=== PATIENT | male | born 1955 | race Caucasian/White ===

== ENCOUNTER 2018-06-18 11:19 | Emergency (ER) | payer OTHER ==
[2018-06-18 11:32] VITALS: TEMP 97.2
--- NOTE | 2018-06-18 11:58 | RAD ---
EXAM DESCRIPTION: Chest,1 View CLINICAL HISTORY: palpitations COMPARISON: None FINDINGS: Cardiac silhouette is within normal limits. Patient is status post median sternotomy and CABG. EKG leads project over the chest. There is no focal parenchymal or pleural disease. There is no acute osseous process visualized. IMPRESSION: No evidence of acute cardiopulmonary disease. Electronically signed by: Moshe Strong MD 06/18/2018 11:[address] [facility]
[2018-06-18] MEDS ORDERED: POTASSIUM CHLORIDE ELIXIR 20 MEQ/15 ML UD PO ONE (12:13)
[2018-06-18] MEDS ORDERED: SODIUM CHLORIDE 0.9% 1000ML 1,000 ML IVS ONE (12:14)
--- NOTE | 2018-06-18 13:41 | ED.PDOC ---
History of Present Illness - General Chief Complaint: Chest Pain/LA Time Seen by Provider: 06/18/18 11:21 Source: patient Exam Limitations: no limitations - History of Present Illness Initial Comments: the patient's 63-year-old male presented to the emergency room secondary to a feeling of palpitations starting this morning when he was trying to get up to get around. He had recently changed psychiatric medications. No new blood pressure medication changes. No syncope or near-syncope. No chest pain. No real shortness of breath. Just a feeling of palpitations. No history of any arrhythmia.t is worse with activity. Timing/Duration: unsure Severity: mild Improving Factors: nothing Worsening Factors: nothing Associated Symptoms: diaphoresis Allergies/Adverse Reactions: Allergies NO KNOWN ALLERGY Allergy (Verified 06/18/18 11:32) Home Medications: Ambulatory Orders Amlodipine Besylate 10 mg PO DAILY 06/18/18 Calcium Polycarbophil 1,250 mg PO DAILY 06/18/18 Duloxetine HCl 60 mg PO DAILY 06/18/18 Hydrochlorothiazide 12.5 mg PO DAILY 06/18/18 Indomethacin 25 mg PO TID PRN 06/18/18 Lisinopril 20 mg PO DAILY 06/18/18 Naproxen [Naprosyn] 500 mg PO BID PRN 06/18/18 Omeprazole 20 mg PO DAILY 06/18/18 Oxybutynin Chloride [Ditropan] 5 mg PO DAILY 06/18/18 Rosuvastatin Calcium 40 mg PO 20 06/18/18 Terazosin HCl 5 mg PO BEDTIME 06/18/18 Review of Systems - Review of Systems Constitutional: States: no symptoms reported EENTM: States: no symptoms reported Respiratory: States: no symptoms reported Cardiology: States: palpitations Gastrointestinal/Abdominal: States: no symptoms reported Genitourinary: States: no symptoms reported Musculoskeletal: States: no symptoms reported Skin: States: no symptoms reported Neurological: States: no symptoms reported Endocrine: States: no symptoms reported All other Systems: No Change from Baseline Past Medical History (General) - Patient Medical History Hx Seizures: No Hx Stroke: No Hx Dementia: No Hx Asthma: No Hx of COPD: No Hx Cardiac Disorders: Yes Hx Congestive Heart Failure: No Hx Pacemaker: No Hx Hypertension: Yes Hx Thyroid Disease: No Hx Diabetes: No Hx Gastroesophageal Reflux: No Hx Renal Disease: No Hx Cancer: No Hx of HIV: No Hx Hepatitis C: No Hx MRSA: No - Vaccination History Hx Tetanus, Diphtheria Vaccination: No Hx Influenza Vaccination: No Hx Pneumococcal Vaccination: No Immunizations Up to Date: No - Social History Hx Tobacco Use: No Hx Chewing Tobacco Use: No Hx Alcohol Use: No Hx Substance Use: No Hx Substance Use Treatment: No Hx Depression: No Feels Threatened In Home Enviroment: No Feels Threatened In a Relationship: No Hx Physical Abuse: No Hx Emotional Abuse: No Hx Suspected Abuse: No - Activities of Daily Living Hospice Agency (if applicable):: None - Female History Patient is a Female of Child Bearing Age (10 -59 yrs old): No Patient : No Family Medical History - Family History Father Hx Family Diabetes: Yes Physical Exam - Physical Exam General Appearance: Alert, Comfortable, No apparent distress Eye Exam: bilateral normal Ears, Nose, Throat: hearing grossly normal, normal ENT inspection Neck: full range of motion, supple Respiratory: lungs clear, normal breath sounds, no respiratory distress, no accessory muscle use Cardiovascular/Chest: normal peripheral pulses, regular rate, rhythm, no edema Peripheral Pulses: radial,right: 2+, radial,left: 2+ Gastrointestinal/Abdominal: non tender, soft - morbidly obese Rectal Exam: deferred Back Exam: no CVA tenderness, no vertebral tenderness Extremity: non-tender, normal inspection, no pedal edema, normal capillary refill 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, no motor/sensory deficits, alert, normal mood/affect, oriented x 3 Skin Exam: normal color Comments: Vital Signs - 24 hr 06/18/18 06/18/18 06/18/18 11:19 12:15 13:15 Temperature 97.2 F L Pulse Rate [ 100 H 79 77 left hand] Respiratory 18 20 Rate Blood Pressure 161/72 121/60 127/62 [Left Arm] O2 Sat by Pulse 96 94 L Oximetry 06/18/18 06/18/18 13:16 13:17 Temperature Pulse Rate [ 86 91 H left hand] Respiratory Rate Blood Pressure 122/63 87/56 [Left Arm] O2 Sat by Pulse Oximetry Progress - Progress Progress: 06/18/18 13:40 the patient 63-year-old male that is feeling some palpitations most likely due to dehydration and significant orthostasis. Systolic blood pressures dropped from approximately the 130s down to the 80s with standing. He does have some significant dehydration contributing to this. I'm going to recommend that he discontinue the hydrochlorothiazide for now and follow up with his primary care doctor. Additionally he does have some hypokalemia. This may also improve with discontinuation of the hydrochlorothiazide. He needs to have this rechecked in 1-2 weeks. He was given supplemental potassium dose today. He did receive a liter of IV fluids here for the dehydration as well. He should ambulate carefully to prevent any falls from the orthostasis. He was monitored on telemetry monitoring here for several hours without any significant arrhythmia. Follow-up with primary care doctor. ER warnings were given. - Results/Orders Results/Orders: chest x-ray shows no acute process. EKG shows normal sinus rhythm at 97 bpm. Normal axis. Normal QT interval. Normal R-wave progression. Mild left atrial dilation. Nonspecific T-wave changes. No previous to compare to. Laboratory Tests 06/18/18 06/18/18 11:51 11:51 WBC 6.0 RBC 4.53 L Hgb 14.4 Hct 41.6 L MCV 92.0 MCH 31.7 H MCHC 34.6 RDW 13.6 Plt Count 126 L MPV 7.8 Absolute Neuts (auto) 4.30 Absolute Lymphs (auto) 0.80 L Absolute Monos (auto) 0.40 Absolute Eos (auto) 0.50 H Absolute Basos (auto) 0.00 Neutrophils % 71.5 Lymphocytes % 14.2 L Monocytes % 6.1 Eosinophils % 8.0 H Basophils % 0.2 Sodium 137 Potassium 3.1 L Chloride 102 Carbon Dioxide 25 Anion Gap 13.1 BUN 29 H Creatinine 1.27 BUN/Creatinine Ratio 22.8 H Random Glucose 132 H Serum Osmolality 281.5 Calcium 9.0 Magnesium 1.8 Total Bilirubin 0.9 AST 18 ALT 15 Alkaline Phosphatase 49 Creatine Kinase 88 CK-MB (CK-2) 2.0 CK-MB (CK-2) % Not Reportable Troponin I < 0.02 B-Natriuretic Peptide 12.2 Serum Total Protein 6.9 Albumin 4.2 Globulin 2.7 Albumin/Globulin Ratio 1.6 - EKG/XRAY/CT CT Ordered: No CT Interpretation Call Back: No Departure - Departure Clinical Impression: Orthostatic hypotension, Palpitations Disposition: Discharge to Home or Self Care Condition: Fair Departure Forms: ED Discharge - Pt. Copy, Patient Portal Self Enrollment Instructions: Orthostatic Hypotension (DC) Diet: regular diet Activity: increase activity as tolerated Home Medications: Ambulatory Orders Amlodipine Besylate 10 mg PO DAILY 06/18/18 Calcium Polycarbophil 1,250 mg PO DAILY 06/18/18 Duloxetine HCl 60 mg PO DAILY 06/18/18 Hydrochlorothiazide 12.5 mg PO DAILY 06/18/18 Indomethacin 25 mg PO TID PRN 06/18/18 Lisinopril 20 mg PO DAILY 06/18/18 Naproxen [Naprosyn] 500 mg PO BID PRN 06/18/18 Omeprazole 20 mg PO DAILY 06/18/18 Oxybutynin Chloride [Ditropan] 5 mg PO DAILY 06/18/18 Rosuvastatin Calcium 40 mg PO 20 06/18/18 Terazosin HCl 5 mg PO BEDTIME 06/18/18 Additional Instructions: the patient 63-year-old male that is feeling some palpitations most likely due to dehydration and significant orthostasis. Systolic blood pressures dropped from approximately the 130s down to the 80s with standing. He does have some significant dehydration contributing to this. I'm going to recommend that he discontinue the hydrochlorothiazide for now and follow up with his primary care doctor. Additionally he does have some hypokalemia. This may also improve with discontinuation of the hydrochlorothiazide. He needs to have this rechecked in 1-2 weeks. He was given supplemental potassium dose today. He did receive a liter of IV fluids here for the dehydration as well. He should ambulate carefully to prevent any falls from the orthostasis. He was monitored on telemetry monitoring here for several hours without any significant arrhythmia. Follow-up with primary care doctor. ER warnings were given.
[2018-06-18 14:46] VITALS: BP 152/75; O2SAT 93
== END 2018-06-18 14:22 | disposition home or self-care (01) ==
LOC: ER 11:19
DX: I95.1 Orthostatic hypotension (principal); R00.2 Palpitations; E86.0 Dehydration; E87.6 Hypokalemia; I10 Essential (primary) hypertension; I51.9 Heart disease, unspecified; Z79.899 Other long term (current) drug therapy
CPT/HCPCS: 36415; 71045; 80053; 82550; 82553; 83735; 83880; 84484; 85025; 87502; 93005; J7030